=== PATIENT | female | born 1950 | race Caucasian/White ===

== ENCOUNTER → 2020-04-24 14:05 | Outpatient (BNVA) | payer MEDICARE, OTHER, SELFPAY | PROVIDERS: Family Provider Family Medicine; PCP Family Medicine; Visit Provider Nurse Practitioner | DX: R31.9 Hematuria, unspecified (principal); R35.0 Frequency of micturition; N39.0 Urinary tract infection, site not specified | CPT/HCPCS: 81000 ==

== ENCOUNTER 2020-12-10 08:26 | Outpatient (CLI) | payer MEDICARE, OTHER, SELFPAY ==
--- NOTE | 2020-12-10 08:34 | US_ITS ---
WS: [id number] Complete ABDOMINAL ULTRASOUND HISTORY: RUQ ABDOMINAL PAIN/POSTPRANDIAL BLOATING/LOOSE STOOLS COMPARISON: None available. Liver: 15.0 cm in length. Liver is normal size and echogenicity with no mass or intrahepatic dilatati on. Gallbladder: Normally distended gallbladder with a few small stones. No pericholecystic fluid. Gallbladder wall thickness: 0.2 cm. Pancreas: Normal size and echogenicity. CBD: 0.5 cm. Right kidney: 11.0 cm x 5.0 cm x 4.7 cm. No mass, cortical thickening or hydronephrosis. Left kidney: 10.9 cm x 3.6 cm x 4.2 cm. No mass, cortical thickening or hydronephrosis. Spleen: Normal size and echogenicity. Abdominal aorta and IVC are within normal limits. No ascites. US/US abdomen complete* [id number] IMPRESSION: 1. Cholelithiasis without evidence for acute cholecystitis. 2. Otherwise negative abdomen ultrasound.
== END 2020-12-10 08:27 | disposition home or self-care (01) ==
LOC: US 08:26
PROVIDERS: PCP Family Medicine; Visit Provider Family Medicine
DX: R10.11 Right upper quadrant pain (principal); R14.0 Abdominal distension (gaseous); R19.5 Other fecal abnormalities; K80.20 Calculus of gallbladder without cholecystitis without obstruction
CPT/HCPCS: 76700

== ENCOUNTER 2021-07-30 18:20 | Emergency (ER) | payer MEDICARE, OTHER, SELFPAY ==
[2021-07-30 18:30] VITALS: BP 194/98; PULSE 82; RESP 18; TEMP 36.8; O2SAT 100; BMI 33.3
--- NOTE | 2021-07-30 18:58 | ECG_ITS ---
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 Measurements Intervals [place] Rate: 83 P: 34 IN: 183 QRS: -13 QRSD: 97 T: 40 QT: 353 QTc: 416 Interpretive Statements SINUS RHYTHM MINIMAL VOLTAGE CRITERIA FOR LVH, CONSIDER NORMAL VARIANT [MEETS CRITERIA IN ONE OF: R(aVL), S(V1), R(V5), R(V5/V6)+S(V1)] No previous ECG available for comparison Electronically Signed On 07-30-2021 22:37:19 CDT by Alex Madison M.D. [id number] f
--- NOTE | 2021-07-30 18:58 | XRR_ITS ---
PROCEDURE INFORMATION: Exam: XR Chest Exam date and time: 07/30/2021 6:58 PM Age: 70 years old Clinical indication: Prior surgery; Surgery type: Gb; Patient HX: Increasing epigastric pain today w/ SOB TECHNIQUE: Imaging protocol: XR of the chest. Views: 1 view. COMPARISON: CT abdomen pelvis w con* [id number] 07/30/2018 6:02 AM FINDINGS: Lungs: Unremarkable. No consolidation. Pleural spaces: Unremarkable. No pleural effusion. No pneumothorax. Heart/Mediastinum: Unremarkable. No cardiomegaly. Bones/joints: Unremarkable. XR/XR chest 1V portable [id number] IMPRESSION: No acute findings. Radiation Dose CTDIVOL = (mGy): DLP = (mGy-cm)
--- NOTE | 2021-07-30 19:07 | W.ED.ABDPA2 ---
HPI - Abdominal Pain General: Chief Complaint: Abdominal Pain Stated Complaint: abd pain Time Seen by Provider: 07/30/21 18:42 History of Present Illness: HPI narrative: 70-year-old female with a history of a cholecystectomy 1 year ago. Since that time she has had intermittent episodes of epigastric pain that become worse in the last 2 weeks. Today was much worse. Pain is located in in her epigastrium and radiates to her back and along her left and right flank. She is nauseated. No vomiting. No fever. No diarrhea she says that it is hard to take a deep breath due to the pain. MD elicited complaint: abdominal pain Pertinent past history: other Onset (ago): hour(s) Pain Consistency: constant Location: Epigastric Severity: moderate Quality: aching and fullness Radiation: L flank and R flank Migration to: no migration Exacerbating factors: movement Relieving factors: nothing Associated Symptoms: Reports anorexia, bloating and nausea; Denies belching, coffee ground emesis, constipation, diarrhea, dysuria, fever(s) and vomiting Review of Systems Const: Denies: fever(s) Card: Denies: chest pain or palpitations Resp: Reports: dyspnea ( hard to take a deep breath ); Denies: productive cough or non-productive cough GI: Reports: nausea and bloating; Denies: vomiting, coffee ground emesis, diarrhea, constipation or belching : Denies: dysuria Neuro: Denies: headache(s) or weakness in extremities PFS ED PFSH: Social History Smoking and tobacco status: never smoked Physical Exam Const: GENERAL APPEARANCE: cooperative and ill appearing; not comfortable NUTRITIONAL APPEARANCE: overweight ORIENTATION/CONSCIOUSNESS: Yes awake, Yes oriented to person and Yes oriented to place HENMT: COMMON NORMALS: normocephalic HEAD & SCALP: normocephalic Eye: COMMON NORMALS: Equal, round and reactive pupils present and EOMs intact bilaterally PUPIL: Yes Equal, round and reactive pupils present Chest: COMMONS NORMALS: normal inspection of the chest and normal palpation of entire chest wall Cardio: COMMON NORMALS: regular rate and regular rhythm RATE: regular rate RHYTHM: regular rhythm GI: COMMON NORMALS: Normal to inspection, nondistended, normoactive bowel sounds present, Soft to palpation and non-tender (Tenderness is not really reproducible.) PALPATION: Yes Soft to palpation Neuro: SENSORIUM/ORIENTATION: Yes oriented to person and Yes oriented to place Course Vital Signs: Vital signs: Vital Signs Temperature 98.3 F 07/30/21 18:30 Pulse Rate 82 07/30/21 18:30 Respiratory Rate 22 H 07/30/21 19:56 Blood Pressure 194/98 07/30/21 18:30 Pulse Oximetry 99 07/30/21 19:56 MDM - Abdominal Pain MDM Narrative: Medical decision making narrative: Epigastric pain, not relieved by GI cocktail in a 70-year-old female status post cholecystectomy in 1 year. Her white blood cell count is 15.4 hemoglobin 15.5. Her creatinine is 1.1 her bilirubin is 3. Mild elevation in liver enzymes. Significant alkaline phosphatase elevation in 425. CT scan of the belly revealed dilated common bile duct. MRCP reveals a 6 mm distal common bile duct obstruction. We do not have gastroenterology and cannot perform ERCP at this institution. We have called multiple other hospitals including hospitals in [facility], [facility], and [place]. The patient has been accepted at [facility] in [place] to the medical surgical floor. She will go by ambulance. Lab Data: Labs: Lab Results 07/30/21 07/30/21 07/30/21 19:15 19:30 19:30 WBC 15.4 10^3/uL H 10 ^3/uL (4.0-10.0) RBC 4.96 10^6/uL 10^6 /uL (4.1-5.3) Hgb 15.5 g/dL H g/dL (11.5-15.3) Hct 48.1 % H % (37.0-47.0) MCV 97.0 fl fl (81-99) MCH 31.3 pg pg (28.0-34.0) MCHC 32.2 g/dL g/dL (30.0-36.0) RDW 13.7 % % (12.1-15.1) Plt Count 358 10^3/cmm 10^3 /cmm (130-400) MPV 11.2 fL H fL (7.4-10.4) Neut % (Auto) 77.7 % % Lymph % (Auto) 10.9 % % [place] % (Auto) 7.5 % % Eos % (Auto) 3.0 % % Baso % (Auto) 0.5 % % Neut # (Auto) 11.97 10^3/uL H 1 0^3/uL (1.8-7.7) Lymph # (Auto) 1.7 10^3/uL 10^3/ uL (0.8-4.8) [place] # (Auto) 1.2 10^3/uL H 10^ 3/uL (0.2-0.9) Eos # (Auto) 0.5 10^3/uL 10^3/ uL (0.0-0.8) Baso # (Auto) 0.1 10^3/uL 10^3/ uL (0.0-0.1) Nucleated RBC % (a uto) 0 % % Nucleated RBCs # 0.0 /100WBC /100W BC PT 13.20 SECONDS SEC ONDS (12.1-14.9) INR 0.97 (0.8-1.2) APTT 28.7 SECONDS SECO NDS (23.9-36.7) D-Dimer 0.57 ug/mIFEU ug/ mIFEU (0-0.59) Sodium Potassium Chloride Carbon Dioxide Anion Gap BUN Creatinine GFR Calculation Glucose Calculated Osmolal ity Lactate Calcium Total Bilirubin AST ALT Alkaline Phosphata se Creatine Kinase Troponin T Baselin e Troponin T 120 Min [place] Troponin T NT-Pro-B Natriuret Pep Total Protein Albumin Globulin Lipase Urine Color Yellow (Yellow) Urine Appearance Turbid (CLEAR) Urine pH 6 (5-7) Ur Specific Gravit y 1.010 (1.005-1.030) Urine Protein Neg (Negative) Urine Glucose (UA) Norm (Normal) Urine Ketones Negative (Negative) Urine Blood Neg (Negative) Urine Nitrate Negative (Negative) Urine Bilirubin Neg (Negative) Urine Urobilinogen 4 mg/dL H mg/dL (Negative) Ur Leukocyte Madelyn ase Negative (Negative) Urine RBC 0-4 /hpf H /hpf (0-2) Urine WBC 5-10 /hpf H /hpf (0-5) Ur Squamous Epith Cells 25-40 /hpf H /hpf (0-5) Amorphous Sediment Not Reportable Urine Bacteria 2+ /hpf H /hpf (NONE) 07/30/21 07/30/21 07/30/21 19:30 19:30 19:30 WBC RBC Hgb Hct MCV MCH MCHC RDW Plt Count MPV Neut % (Auto) Lymph % (Auto) [place] % (Auto) Eos % (Auto) Baso % (Auto) Neut # (Auto) Lymph # (Auto) [place] # (Auto) Eos # (Auto) Baso # (Auto) Nucleated RBC % (a uto) Nucleated RBCs # PT INR APTT D-Dimer Sodium 140 mmol/L mmol/L (136-145) Potassium 4.4 mmol/L mmol/L (3.5-5.1) Chloride 104 mmol/L mmol/L (98-107) Carbon Dioxide 21 mmol/L L mmol/ L (22-29) Anion Gap 19.4 H (5-19) BUN 12 mg/dL mg/dL (8-23) Creatinine 1.1 mg/dL H mg/dL (0.5-0.9) GFR Calculation Not Reportable Glucose 94 mg/dL mg/dL (65-115) Calculated Osmolal ity 290 mOsm/kg mOsm/ kg (285-295) Lactate 1.4 mmol/L mmol/L (0.5-2.2) Calcium 9.3 mg/dL mg/dL (8.5-10.5) Total Bilirubin 3.2 mg/dL H mg/dL (0.15-1.2) AST 181 U/L H U/L (0-32) ALT 193 U/L H U/L (0-33) Alkaline Phosphata se 425 IU/L H IU/L (35-105) Creatine Kinase 99 U/L U/L (26-192) Troponin T Baselin e 10 ng/L ng/L (0-10) Troponin T 120 Min [place] Troponin T NT-Pro-B Natriuret Pep 341 pg/mL H pg/mL (0-125) Total Protein 7.2 g/dL g/dL (6.6-8.7) Albumin 4.2 g/dL g/dL (3.5-5.2) Globulin 3.0 g/dL g/dL (1.3-4.6) Lipase 180 U/L H U/L (13-60) Urine Color Urine Appearance Urine pH Ur Specific Gravit y Urine Protein Urine Glucose (UA) Urine Ketones Urine Blood Urine Nitrate Urine Bilirubin Urine Urobilinogen Ur Leukocyte Madelyn ase Urine RBC Urine WBC Ur Squamous Epith Cells Amorphous Sediment Urine Bacteria 07/30/21 21:45 WBC RBC Hgb Hct MCV MCH MCHC RDW Plt Count MPV Neut % (Auto) Lymph % (Auto) [place] % (Auto) Eos % (Auto) Baso % (Auto) Neut # (Auto) Lymph # (Auto) [place] # (Auto) Eos # (Auto) Baso # (Auto) Nucleated RBC % (a uto) Nucleated RBCs # PT INR APTT D-Dimer Sodium Potassium Chloride Carbon Dioxide Anion Gap BUN Creatinine GFR Calculation Glucose Calculated Osmolal ity Lactate Calcium Total Bilirubin AST ALT Alkaline Phosphata se Creatine Kinase Troponin T Baselin e Troponin T 120 Min [place] 10.56 ng/L H ng/L (0-10) Delta Troponin T 0.56 ABS# ABS# (0-10) NT-Pro-B Natriuret Pep Total Protein Albumin Globulin Lipase Urine Color Urine Appearance Urine pH Ur Specific Gravit y Urine Protein Urine Glucose (UA) Urine Ketones Urine Blood Urine Nitrate Urine Bilirubin Urine Urobilinogen Ur Leukocyte Madelyn ase Urine RBC Urine WBC Ur Squamous Epith Cells Amorphous Sediment Urine Bacteria Discharge Plan Discharge Patient Disposition: Xfer Short-Term Hosp Clinical Impression: Choledocholithiasis Condition: Stable Referrals: Dylan Badillo MD [Primary Care Provider] - Coding Level of Care Code ED Professor Of Communication And Writing for Chg Fwd Exam Detailed
[2021-07-30] MEDS: ondansetron 2 mg/ML SDV 2 mL 4 MG IVP (19:22)
[2021-07-30] MEDS: morphine 4 mg/mL SDV 1 mL IVP ×2 (19:22→19:56)
[2021-07-30] MEDS: sodium chloride 0.9% 1,000 ML 999 ML IV (19:22)
[2021-07-30] MEDS: lidocaine 2% viscous 15 ML, aluminum-mag hydrox-simethicon 30 ML, sucralfate oral liq 1 GM PO (19:30)
[2021-07-30 19:36] LABS: Add Urine Culture? No; Add Urine Microscopic? YES; Bacteria Urine 2+ /hpf; Bilirubin Urine Neg (Negative); Blood Urine Neg (Negative); Glucose Urine UA Norm (Normal); Ketones Urine Negative (Negative); Leukocyte Esterase Urine Negative (Negative); Nitrate Urine Negative (Negative); Protein Urine Neg (Negative); RBC Urine 0-4 /hpf (0-2); Squamous Epithelial Cell Urine 25-40 /hpf (0-5); Urine Appearance Turbid (CLEAR); Urine Color Yellow (Yellow); Urobilinogen Urine 4 mg/dL (Negative); pH Urine 6 (5-7)
[2021-07-30 19:48] LABS: Basophils # 0.1 10^3/uL (0.0-0.1); Basophils % 0.5 %; Eosinophils # 0.5 10^3/uL (0.0-0.8); Hematocrit 48.1 % (37.0-47.0); Hemoglobin 15.5 g/dL (11.5-15.3); Lymphocytes # 1.7 10^3/uL (0.8-4.8); Lymphocytes % 10.9 %; Mean Corpuscular HGB Conc 32.2 g/dL (30.0-36.0); Mean Corpuscular Hemoglobin 31.3 pg (28.0-34.0); Mean Platelet Volume 11.2 fL (7.4-10.4); Monocytes # 1.2 10^3/uL (0.2-0.9); Monocytes % 7.5 %; Neutrophils # 11.97 10^3/uL (1.8-7.7); Neutrophils % 77.7 %; Nucleated Red Blood Cells % 0 %; Platelet Count 358 10^3/cmm (130-400); Red Blood Count 4.96 10^6/uL (4.1-5.3); Red Cell Distribution Width 13.7 % (12.1-15.1); White Blood Count 15.4 10^3/uL (4.0-10.0)
[2021-07-30 19:56] VITALS: RESP 22; O2SAT 99
--- NOTE | 2021-07-30 19:59 | CTR_ITS ---
PROCEDURE INFORMATION: Exam: CT Abdomen And Pelvis With Contrast Exam date and time: 07/30/2021 7:59 PM Age: 70 years old Clinical indication: Abdominal pain; Epigastric; Prior surgery; Surgery type: Oophorectomy, gb; Additional info: Epigstric pain TECHNIQUE: Imaging protocol: Computed tomography of the abdomen and pelvis with contrast. Radiation optimization: All CT scans at this facility use at least one of these dose optimization techniques: automated exposure control; mA and/or kV adjustment per patient size (includes targeted exams where dose is matched to clinical indication); or iterative reconstruction. Contrast material: VISI 320; Contrast volume: 95 ml; Contrast route: INTRAVENOUS (IV); COMPARISON: CT abdomen pelvis w con* [id number] 07/30/2018 6:02 AM RADIATION DOSE METRICS: Total DLP (mGy-cm): 1712.03 FINDINGS: Liver: Normal. No mass. Gallbladder and bile ducts: Cholecystectomy. The biliary system is mildly dilated which is new from comparison imaging. The common bile duct measures about 9 mm maximal transverse diameter. On the coronal images there is suggestion of an expanded appearance of the duct near the ampulla on coronal image 41. The biliary epithelium is mildly enhancing. Pancreas: Normal. No ductal dilation. Spleen: Normal. No splenomegaly. Adrenal glands: Normal. No mass. Kidneys and ureters: Normal. No hydronephrosis. Stomach and bowel: Unremarkable. No obstruction. No mucosal thickening. Appendix: No evidence of appendicitis. Intraperitoneal space: Unremarkable. No free air. No significant fluid collection. Vasculature: Large volume of circumferential atherosclerotic wall plaque throughout abdominal aorta. Negative for vascular occlusion. No aneurysm. Lymph nodes: Unremarkable. No enlarged lymph nodes. Urinary bladder: Unremarkable as visualized. Reproductive: Unremarkable as visualized. Bones/joints: Unremarkable. No acute fracture. Soft tissues: Unremarkable. CT/CT abdomen pelvis w con* [id number] IMPRESSION: 1. Small partially calcified fibroid in the uterine fundus. 2. Mildly dilated biliary system extending into the ampulla. Enhancement of the bile duct mendoza. The diagnostic considerations would include a distal obstructing lesion such as a stone, ampullary mass. Cannot exclude cholangitis. 3. Correlation with liver function tests necessary. MRCP evaluation may be of value. Radiation Dose CTDIVOL = (mGy): DLP = 1712.03 (mGy-cm)
[2021-07-30 20:02] LABS: INR 0.97 (0.8-1.2)
[2021-07-30 20:03] LABS: Partial Thromboplastin Time 28.7 SECONDS (23.9-36.7)
[2021-07-30 20:05] LABS: Lactate (Lactic Acid level) 1.4 mmol/L (0.5-2.2)
[2021-07-30 20:06] LABS: D Dimer 0.57 ug/mIFEU (0-0.59)
[2021-07-30 20:08] LABS: Troponin(5th) Baseline 10 ng/L (0-10)
[2021-07-30 20:15] LABS: Alanine Aminotransferase 193 U/L (0-33); Albumin Level 4.2 g/dL (3.5-5.2); Alkaline Phosphatase 425 IU/L (35-105); Anion Gap 19.4 (5-19); Aspartate Amino Transferase 181 U/L (0-32); Blood Urea Nitrogen 12 mg/dL (8-23); Calcium 9.3 mg/dL (8.5-10.5); Carbon Dioxide 21 mmol/L (22-29); Chloride 104 mmol/L (98-107); Creatine Phosphokinase 99 U/L (26-192); Glucose 94 mg/dL (65-115); Lipase 180 U/L (13-60); NT Pro B Type Natriuretic Pept 341 pg/mL (0-125); Osmolality Calculated 290 mOsm/kg (285-295); Potassium 4.4 mmol/L (3.5-5.1); Sodium 140 mmol/L (136-145); Total Bilirubin 3.2 mg/dL (0.15-1.2); Total Protein 7.2 g/dL (6.6-8.7)
[2021-07-30] MEDS: iodixanol 320 mg/mL 100mL Btl IV (20:27)
[2021-07-30 20:35] VITALS: BP 199/92; PULSE 98; RESP 22; O2SAT 99
--- NOTE | 2021-07-30 20:57 | MRR_ITS ---
PROCEDURE INFORMATION: Exam: MR Abdomen Without Contrast Exam date and time: 07/30/2021 8:57 PM Age: 70 years old Clinical indication: Abdominal pain; Additional info: Ruq pain, elevated bili TECHNIQUE: Imaging protocol: MR of the abdomen without contrast. COMPARISON: CT abdomen pelvis w con* [id number] 07/30/2021 8:25 PM FINDINGS: Liver: No mass. Gallbladder and bile ducts: Mild dilation of intrahepatic and extrahepatic biliary system. Common bile duct measuring up to 10 mm in the midportion. Cholecystectomy. Focal signal void in the distal common bile duct is noted measuring 6 mm diameter. Pancreas: Unremarkable. No ductal dilation. Spleen: Unremarkable. No splenomegaly. Adrenal glands: Unremarkable. No mass. Kidneys and ureters: Unremarkable. No solid mass. No hydronephrosis. Stomach and bowel: Visualized stomach and intestines are unremarkable. Intraperitoneal space: No free fluid. Arteries: No abdominal aortic aneurysm. Bones/joints: Unremarkable. Soft tissues: Unremarkable. MR/MR MRCP [id number] IMPRESSION: Distal common bile duct stone suspected causing upstream biliary system dilation changes. Radiation Dose CTDIVOL = (mGy): DLP = (mGy-cm)
--- NOTE | 2021-07-30 20:58 | ECG_ITS ---
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 Measurements Intervals [place] Rate: 94 P: 45 [place]: 177 QRS: -28 QRSD: 94 T: 37 QT: 345 QTc: 431 Interpretive Statements SINUS RHYTHM BORDERLINE LEFT AXIS DEVIATION [QRS AXIS < -20] Compared to ECG 07/30/2021 19:16:17 No significant changes Electronically Signed On 07-30-2021 22:47:57 CDT by Alex Madison M.D. [id number] f
[2021-07-30] MEDS: amlodipine 10 mg Tablet PO (21:03)
[2021-07-30] MEDS: labetalol 5 mg/mL SDV 20mL 20 MG IVP (21:03)
[2021-07-30 21:35] VITALS: BP 176/82; PULSE 78; RESP 20; O2SAT 99
[2021-07-30 22:32] LABS: Troponin 5 2HR 10.56 ng/L (0-10); Troponin 5 2HR Delta 0.56 ABS# (0-10)
[2021-07-30 23:35] VITALS: BP 171/77; PULSE 82; RESP 20; O2SAT 99
[2021-07-31] MEDS: lisinopril 10 mg Tablet 40 MG PO (00:26)
[2021-07-31] MEDS: morphine 4 mg/mL SDV 1 mL IVP ×2 (00:27→02:17)
--- NOTE | 2021-07-31 00:58 | ECG_ITS ---
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 Measurements Intervals [place] Rate: 87 P: 34 [place]: 172 QRS: -23 QRSD: 96 T: 36 QT: 368 QTc: 444 Interpretive Statements SINUS RHYTHM BORDERLINE LEFT AXIS DEVIATION [QRS AXIS < -20] Compared to ECG 07/30/2021 21:06:33 No significant changes Electronically Signed On 08-01-2021 18:38:24 CDT by Franchesca Villarreal M.D. [id number]
[2021-07-31 01:00] VITALS: BP 162/78; PULSE 85; RESP 18; O2SAT 99
[2021-07-31] MEDS: sodium chloride 0.9% 1,000 ML 100 ML IV (01:30)
[2021-07-31 02:12] LABS: Troponin 5 6HR 14.33 ng/L (0-10); Troponin 5 6HR Delta 4.33 ng/L (0-12)
[2021-07-31] MEDS: ondansetron 2 mg/ML SDV 2 mL 4 MG IVP (02:17)
[2021-07-31 02:27] VITALS: BP 169/79; PULSE 92; RESP 20; O2SAT 98
--- NOTE | 2021-07-31 03:34 | PC.NURSE ---
At the time of transfer, pt reports pain has markedly improved and states upper abdominal area does not feel as tight and constricting as it was at the time of admission to ER. No N/V while in ER.
== END 2021-07-31 02:22 | disposition short-term general hospital (02) ==
PROVIDERS: Emergency Provider Emergency Medicine; PCP Family Medicine
DX: K80.50 Calculus of bile duct without cholangitis or cholecystitis without obstruction (principal)
CPT/HCPCS: 71045; 74177; 74181; 80053; 81001; 82550; 83605; 83690; 83880; 84484; 85025; 85378; 85610; 85730; 93005; 96361; 96374; 96375; 96376; 99285; J2270; J2405; J3490; J7030; Q9967

== ENCOUNTER → 2022-02-07 11:43 | Outpatient (BNVA) | payer MEDICARE, OTHER, SELFPAY | PROVIDERS: PCP Family Medicine; Visit Provider Family Medicine | DX: Z51.81 Encounter for therapeutic drug level monitoring (principal); Z13.220 Encounter for screening for lipoid disorders; Z13.1 Encounter for screening for diabetes mellitus; E03.9 Hypothyroidism, unspecified | CPT/HCPCS: 80053; 80061; 83036; 84439; 84443; 85025 ==

== ENCOUNTER 2022-02-21 10:19 | Outpatient (CLI) | payer MEDICARE, OTHER, SELFPAY ==
--- NOTE | 2022-02-21 10:33 | MM_ITS ---
WS: [id number] SCREENING DIGITAL BREAST TOMOSYNTHESIS MAMMOGRAM WITH CAD HISTORY: SCREENING COMPARISON: 05/29/2020 and 01/16/2019 Bilateral CC and MLO with tomosynthesis views submitted. Synthetic mammography reviewed. Computer aid ed detection analyzed. Breast composition: There are scattered areas of fibroglandular density. No suspicious masses, microc alcifications or architectural distortion. Bilateral breast arterial calcifications. MM/[place] [id number] IMPRESSION: BI-RADS: 2-Benign FOLLOW UP: 1 Year Follow-up
== END 2022-02-21 10:20 | disposition home or self-care (01) ==
LOC: RAD 10:23
PROVIDERS: PCP Family Medicine; Visit Provider Family Medicine
DX: Z12.31 Encounter for screening mammogram for malignant neoplasm of breast (principal)
CPT/HCPCS: 77063; 77067

== ENCOUNTER 2022-02-28 06:57 | Outpatient (CLI) | payer MEDICARE, OTHER, SELFPAY ==
--- NOTE | 2022-02-28 07:02 | US_ITS ---
WS: [id number] THYROID ULTRASOUND (TI-RADS CRITERIA) History: Palpable RIGHT thyroid nodule.. Technique: Ultrasound examination of the thyroid and adjacent soft tissues is performed. FINDINGS: Right lobe: 5.2 cm x 2.1 cm x 2.8 cm. Volume: 16.0 cm3. Enlarged heterogeneous thyroid gland with a dominant nodule. Lymph nodes: None. NODULE: Size: 2.3 x 1.8 x 2.2 cm. Location: Mid RIGHT. Composition: Solid/almost completely solid (2) Echogenicity: Hyperechoic (1) Shape: Not taller than wide (0) Margins: Smooth (0) Echogenic foci: None (0) ACR TI-RADS total points: 3 ACR TI-RADS risk category: TR3 Left lobe: 4.3 cm x 1.1 cm x 1.9 cm. Volume: 4.6 cm3. Small very heterogeneous irregular gland. No dominant nodules. Lymph nodes: Small benign-appearing Isthmus: 0.5 cm. US/US thyroid [id number] Impression: TR3 Recommendation:Mildly suspicious features. Predominantly due to its size. As th is nodule is less than 2.5 cm recommendation is for follow-up in one, 3 and 5 y ears. Fine-needle aspiration can be performed if clinically desired. If thyroid nodule(s) change on follow-up examinations the recommendations will be altered as necessary.
== END 2022-02-28 06:58 | disposition home or self-care (01) ==
LOC: RAD 06:58
PROVIDERS: PCP Family Medicine; Visit Provider Family Medicine
DX: E04.1 Nontoxic single thyroid nodule (principal)
CPT/HCPCS: 76536

== ENCOUNTER 2022-03-23 07:49 | Outpatient (CLI) | payer MEDICARE, OTHER, SELFPAY ==
--- NOTE | 2022-03-23 07:56 | XR_ITS ---
WS: [id number] LEFT KNEE: 3 VIEW(S) TECHNIQUE: AP, oblique(s) and lateral. HISTORY: LEFT KNEE PAIN COMPARISON: None available. No fracture or dislocation. Moderate narrowing of the medial compartment. There are very small osteophytes along the joint line o f the medial compartment. Small amount of sclerosis involving the medial tibial plateau and femoral c ondyle. No definite osteochondral lesions. No fracture. No joint effusion. No soft tissue abnormality. XR/XR knee LT 3V* [id number] IMPRESSION: Moderate medial compartment osteoarthritis.
--- NOTE | 2022-03-23 07:56 | XR_ITS ---
WS: [id number] RIGHT KNEE: 3 VIEW(S) TECHNIQUE: AP, oblique(s) and lateral. HISTORY: R KNEE PAIN COMPARISON: None available. No fracture or dislocation. Moderate to severe narrowing of the medial compartment. Sclerosis with near bone upon bone. Small mar ginal osteophytes in the medial and lateral compartment. Mild narrowing of patellofemoral joint space . No joint effusion. No soft tissue abnormality. XR/XR knee RT 3V* [id number] IMPRESSION: Moderate to severe medial compartment osteoarthritis.
== END 2022-03-23 07:50 | disposition home or self-care (01) ==
LOC: RAD 07:51
PROVIDERS: PCP Family Medicine; Visit Provider Family Medicine
DX: M17.0 Bilateral primary osteoarthritis of knee (principal)
CPT/HCPCS: 73562

== ENCOUNTER 2022-03-29 10:52 | Emergency (ER) | payer MEDICARE, OTHER, SELFPAY ==
[2022-03-29 11:12] VITALS: BP 145/54; PULSE 89; RESP 16; TEMP 37.1; O2SAT 99; BMI 33.3
--- NOTE | 2022-03-29 14:17 | XR_ITS ---
WS: [id number] Exam: XR knee LT 3V* [id number] Date/Time of Exam: 03/29/2022 2:18 PM Reason For Exam: Fell down and left knee hit wood floor Comparison 03/23/2022. No acute fracture or dislocation. Moderate degenerative narrowing of the medial joint compartment. No joint effusion seen. Osteophyte formation along the superior anterior patella. XR/XR knee LT 3V* [id number] IMPRESSION: 1. No fracture or joint effusion. 2. Moderate degenerative change of the medial joint compartment with narrowing.
--- NOTE | 2022-03-29 14:23 | W.ED.FALL ---
HPI - Fall General: Chief Complaint: Fall Stated Complaint: FALL Time Seen by Provider: 03/29/22 13:58 History of Present Illness: Patient is a 71-year-old female comes to the ED with left knee pain. Patient says she fell approximately a week ago. She says she was bending forward to clean some water off the floor and Lost her balance and fell forward. Her knees hit the wood floor. She denies any head trauma or loss of consciousness. Since fall her left knee has been hurting her. She says she is unable to bear weight at this time. She rates her pain currently a 8 out of 10. She has not had anything for pain today before coming to the ED. patient's PCP has currently referred her to Ortho for bilateral osteoarthritic knee pain. Associated symptoms-after fall: Denies abdominal pain, chest pain, headache(s), hematuria or neck pain Review of Systems Const: Denies: fever(s), chills or fatigue Eyes: Denies: change in vision or eye discomfort ENMT: Denies: throat pain, odynophagia, nasal discharge or nasal congestion Card: Denies: chest pain, palpitations, edema, swelling of feet/ankles, dyspnea on exertion or orthopnea Resp: Denies: dyspnea, productive cough or non-productive cough GI: Denies: abdominal pain, nausea, vomiting, diarrhea, constipation or hematochezia : Denies: flank pain, dysuria or hematuria Musc: Reports: extremity pain (Left knee) and limited range of motion (Left knee); Denies: neck pain, back pain or extremity swelling Skin/Breast: Denies: rash or new lesions Neuro: Denies: headache(s), numbness in extremities or weakness in extremities PFS ED PFSH: Medical History No pertinent family history Surgical History No pertinent past surgical history Social History Smoking and tobacco status: never smoked Physical Exam Const: COMMON NORMALS: patient oriented x3 and alert GENERAL APPEARANCE: cooperative and comfortable HENMT: COMMON NORMALS: normocephalic HEAD & SCALP: normocephalic MOUTH: Normal oral and palatal mucosa present THROAT: posterior oropharynx normal and uvula midline Neck/C-Spine: COMMON NORMALS: supple GENERAL: Yes normal visual inspection Resp: COMMON NORMALS: normal respiratory effort, No retractions, No use of accessory muscles and clear to auscultation bilaterally AUSCULTATION: clear to auscultation bilaterally Cardio: COMMON NORMALS: regular rate, regular rhythm, S1 normal heart sound present, S2 normal heart sound present, No gallops present (Cardio), No clicks present (Cardio), No murmurs present (Cardio) and Peripheral pulses 2+ throughout RATE: regular rate RHYTHM: regular rhythm HEART SOUNDS: S1 normal heart sound present and S2 normal heart sound present PERIPHERAL PULSES: Peripheral pulses 2+ throughout GI: COMMON NORMALS: Normal to inspection, nondistended, normoactive bowel sounds present, Soft to palpation, non-tender and no masses PALPATION: Yes Soft to palpation : COMMON NORMALS: Yes no CVA tenderness BLADDER/KIDNEY EXAM: Yes no CVA tenderness Back/Pelvis: COMMON NORMALS: no CVA tenderness Extremity: NARRATIVE EXTREMITY EXAM: Left knee?no erythema or warmth noted. Mild generalized swelling in knee. Tenderness over patella. Neurovascular intact distally. Neuro: COMMON NORMALS: patient oriented x3 and moves all extremities SENSORIUM/ORIENTATION: Yes alert Skin: GENERAL SKIN EXAM: dry skin Course Vital Signs: Vital signs: Vital Signs Temperature 98.8 F 03/29/22 11:12 Pulse Rate 67 03/29/22 16:39 Respiratory Rate 16 03/29/22 16:39 Blood Pressure 145/54 03/29/22 11:12 Pulse Oximetry 99 03/29/22 16:39 MDM - Fall Medical Decision Making Patient is a 71-year-old female comes to the ED with left knee pain. Patient says she fell approximately a week ago. She says she was bending forward to clean some water off the floor and Lost her balance and fell forward. Her knees hit the wood floor. She denies any head trauma or loss of consciousness. Vitals are stable. Exam of patient shows some left knee tenderness over patella. Neurovascular intact. X-ray of left knee showed no acute fractures or joint effusions. It did note some moderate degenerative changes of the medial joint compartment. Patient was diagnosed with injury of left knee was discharged home with crutches. Patient's PCP has currently referred her to Ortho for bilateral osteoarthritic knee pain. Return to ED precautions given. Patient understood and agreed with plan. Lab Data Radiology Impressions Knee X-Ray 03/29/22 14:17 IMPRESSION: 1. No fracture or joint effusion. 2. Moderate degenerative change of the medial joint compartment with narrowing. Discharge Plan Discharge Patient Disposition: Home Clinical Impression: Injury of knee, left Qualifiers: Encounter type: initial encounter Qualified Code(s): S89.92XA - Unspecified injury of left lower leg, initial encounter Condition: Stable Prescriptions: No Action valacyclovir 1 gram tablet 1,000 mg PO TID 7 Days Qty: 21 0RF simvastatin 40 mg tablet 40 mg PO ONCE 0RF metoprolol succinate 100 mg tablet extended release 24 hr 100 mg PO DAILY 0RF lisinopril 20 mg tablet 20 mg PO ONCE 0RF levothyroxine 75 mcg capsule 75 mcg PO ONCE 0RF medroxyprogesterone 10 mg tablet 10 mg PO ONCE 0RF estradiol 1 mg tablet 1 mg PO ONCE 0RF sulfamethoxazole-trimethoprim 800-160 mg tablet 1 tab PO BID 7 Days Qty: 14 0RF Discharge Orders: Discharge ED (Routine); Ordered 03/29/22 Ordered By: Josafat Landaverde Referrals: Josafat Brock MD [Primary Care Provider] - Discharge Diet: Regular Discharge Activity: Increase activity as tolerated Patient Instructions: Knee Pain (ED) Activity Restrictions/Additional Instructions: Follow-up with primary care provider in the next 5 to 7 days for reevaluation. Take [id number] ibuprofen or Tylenol for pain. Rest, ice and elevate left knee elbow symptoms. Use crutches to limit weightbearing on left knee for the next couple days to allow for healing. Return to the ER or your medical provider if condition worsens. Please read and understand discharge instructions. Thank you for choosing [facility] for your healthcare needs today. Please realize this is an emergency room and that we are providing you with a medical screening exam and this may not be complete and all inclusive of all the testing and or work up that you may need to determine your ailment or severity of your illness. It is very important that you follow up as instructed or that you return to the Emergency Department should you have concerns or if your condition changes or worsens in any way. Coding Level of Care Code ED Event Lighting Specialist for Jenniffer Brown Exam Comprehensive
[2022-03-29] MEDS: HYDROcodone-acetaminophen 5-325 mg Tablet 1 TAB PO (14:37)
--- NOTE | 2022-03-29 16:38 | PC.NURSE ---
PERFORMED BY [employer].
[2022-03-29 16:39] VITALS: PULSE 67; RESP 16; O2SAT 99
== END 2022-03-29 16:40 | disposition home or self-care (01) ==
PROVIDERS: Emergency Provider Physician Assistant; PCP Family Medicine
DX: S89.92XA Unspecified injury of left lower leg, initial encounter (principal); W18.30XA Fall on same level, unspecified, initial encounter
CPT/HCPCS: 73562; E0114

== ENCOUNTER → 2022-03-31 09:23 | Outpatient (BNVA) | payer MEDICARE, OTHER, SELFPAY | PROVIDERS: PCP Family Medicine; Referring Provider Family Medicine; Visit Provider Physician Assistant | DX: M17.0 Bilateral primary osteoarthritis of knee (principal) | CPT/HCPCS: 99203 ==

== ENCOUNTER 2022-04-08 13:24 | Outpatient (RCR) | payer MEDICARE, OTHER, SELFPAY | END 2022-05-08 23:59 | disposition home or self-care (01) | LOC: SPT 13:24 | PROVIDERS: PCP Family Medicine; Referring Provider Physician Assistant; Visit Provider Physician Assistant | DX: M17.0 Bilateral primary osteoarthritis of knee (principal) | CPT/HCPCS: 97110; 97162 ==

== ENCOUNTER → 2022-05-04 14:52 | Outpatient (BNVA) | payer MEDICARE, OTHER, SELFPAY | PROVIDERS: PCP Family Medicine; Visit Provider Orthopaedic Surgery | DX: M17.0 Bilateral primary osteoarthritis of knee (principal) | CPT/HCPCS: 20610; 99203; 99204; J7325 ==

== ENCOUNTER → 2022-05-25 08:26 | Outpatient (BNVA) | payer MEDICARE, OTHER, SELFPAY | PROVIDERS: PCP Family Medicine; Visit Provider Orthopaedic Surgery | DX: M17.0 Bilateral primary osteoarthritis of knee (principal) | CPT/HCPCS: 99212 ==

== ENCOUNTER → 2022-06-22 08:13 | Outpatient (BNVA) | payer MEDICARE, OTHER, SELFPAY | PROVIDERS: PCP Family Medicine; Visit Provider Family Medicine | DX: Z00.00 Encounter for general adult medical examination without abnormal findings (principal); G47.10 Hypersomnia, unspecified; I10 Essential (primary) hypertension; Z51.81 Encounter for therapeutic drug level monitoring; R25.2 Cramp and spasm | CPT/HCPCS: 80053; 80061; 83735; 85025 ==

== ENCOUNTER → 2022-07-06 08:37 | Outpatient (BNVA) | payer MEDICARE, OTHER, SELFPAY | PROVIDERS: PCP Family Medicine; Visit Provider Family Medicine | DX: R73.01 Impaired fasting glucose (principal); G47.10 Hypersomnia, unspecified; I10 Essential (primary) hypertension; Z00.00 Encounter for general adult medical examination without abnormal findings | CPT/HCPCS: 83036 ==

== ENCOUNTER → 2022-10-25 13:28 | Outpatient (BNVA) | payer MEDICARE, OTHER, SELFPAY | PROVIDERS: PCP Family Medicine; Visit Provider Orthopaedic Surgery | DX: M17.11 Unilateral primary osteoarthritis, right knee (principal); M65.311 Trigger thumb, right thumb | CPT/HCPCS: 20610; 99213; J0702; J3490 ==

== ENCOUNTER 2022-11-03 08:56 | Day surgery (SDC) | payer MEDICARE, OTHER, SELFPAY ==
[2022-11-01 11:39] VITALS: BMI 33.1
[2022-11-03] VITALS (8 sets, daily range): BP systolic 129–177; BP diastolic 55–87; PULSE 61–89; RESP 10–18; TEMP 36.3–36.9; O2SAT 95–97
--- NOTE | 2022-11-03 08:26 | W.PM.OPSUD ---
Surgery/Procedure H&P Update DATE OF PROCEDURE: November 03, 2022 DATE H&P PERFORMED: 10/25/22 H&P UPDATE INFORMATION: I have reviewed H&P completed within last 30 days PREOP DIAGNOSIS: Right trigger thumb PLANNED PROCEDURE: Operation Date: 11/03/22 10:30 Proposed Procedures p right trigger thumb release/ 66908,M65.319(Right) - Iván Avila MD
[2022-11-03] MEDS: sodium chloride 0.9% 1,000 ML 30 ML IV (09:40)
--- NOTE | 2022-11-03 09:53 | P.ANESASSM_ITS ---
Pre-Anesthetic Assessment Height/Weight: Height 1.6 m Weight 84.822 kg Temp Pulse Resp BP Pulse Ox O2 Del Method 97.4 F L 71 18 163/87 97 11/03/22 09:14 11/03/22 09:14 11/03/22 09:14 11/03/22 09:14 11/03/22 09:14 11/03/22 09:14 Preop Diagnosis: Right trigger thumb Operation Date: 11/03/22 10:30 Proposed Procedures p right trigger thumb release/ 31721,M65.319(Right) - Iván Avila MD Familial anesthetic complications: awareness - patient experienced awareness during induction for her gallbladder surgery, experienced not being able to move or speak and felt the breathing tube going in. Patient experienced signifcant anxiety for the following 3 months. Would like for us to explain what we are doing every step of the way and warn her before she receives any propofol Was Beta Ken taken within 24 hours: Yes Was Clonidine taken within 24 hours: N/A Last intake: Intake Last Liquid Date 11/03/22 Last Liquid Time 08:00 Last Solid Date 11/02/22 Last Solid Time 18:00 Social No alcohol and No tobacco Exam alert, oriented x 3, clear to auscultation bilaterally and regular rate & rhythm Airway Mallampati: Class III Dentition: full CV/HEM Hypertension Metabolic Hyperlipidemia and Thyroid Disease Anesthetic Plan ASA status: 2 Anesthesia: MAC Risk of > 500 ml blood loss (7ml/kg in children): No Medications/Allergies Home Medications Medication Instructions Recorded Confirmed Last Taken Type levothyroxine 75 mcg capsule 75 mcg PO ONCE 10/12/19 11/01/22 11/03/22 History metoprolol succinate 100 mg 100 mg PO DAILY 10/12/19 11/01/22 11/03/22 History tablet,extended release 24 hr hydrochlorothiazide 25 mg tablet 25 mg PO DAILY #30 tabs 06/21/22 11/01/22 0 11/02/22 Rx lisinopril 40 mg tablet 40 mg PO DAILY 06/21/22 11/01/22 11/02/22 History meloxicam 15 mg tablet 15 mg PO DAILY #30 tabs 06/21/22 11/01/22 11/02/22 Rx simvastatin 20 mg tablet 20 mg PO DAILY 06/21/22 11/01/22 11/02/22 History amlodipine 10 mg tablet 10 mg PO DAILY #90 tabs 07/14/22 11/01/22 11/03/22 Rx estradiol 0.5 mg tablet See Rx Instructions .Route 10/14/22 11/01/22 11/01/22 Rx .COMPLEX #30 tabs Allergies Allergy/AdvReac Type Severity Reaction Status Date / Time prednisone Allergy Mild rash Verified 11/03/22 09:13 [facility] Anesthesia Medical History No pertinent family history Surgical History No pertinent past surgical history Social History Smoking and tobacco status: never smoked Data Anesthesia Cardiac Studies: No Data to Display
[2022-11-03] MEDS: ceFAZolin 2,000 MG in sodium chloride 0.9% (plus) 50 ML 100 MG IV (10:21)
--- NOTE | 2022-11-03 11:01 | PM.OP ---
Operative Report Date of procedure: November 03, 2022 Pre-op diagnosis: Preop Diagnosis Right trigger thumb Post-op diagnosis: same Procedure done: Right trigger thumb release Pathology: none sent Surgeon: Iván Avila Anesthesia: MAC and Local Estimated blood loss (mL): 1 Tourniquet time (min): 3 Condition: stable Disposition: PACU Brief History: The patient is a 71-year-old with pain and popping in her right thumb. She has failed a previous injection. She is here for trigger thumb release Procedure: The patient's hand was prepped in the usual fashion. A timeout was performed. The skin was infiltrated with 3 cc of 0.5% Marcaine. A tourniquet was inflated to 200 mmHg I transverse incision was made over the level of a 1 simon in the palm over a distance of approximately a centimeter and a half. Under loupe magnification blunt dissection was accomplished down to the A1 simon. With adequate visualization a scalpel was used to divide the central 8 mm of that structure. Blunt scissors were then used to extend the release approximately 5 mm proximally and 5 mm distally. Tendons were pulled the road and inspected to assure there health. Tourniquet was deflated. Normal bleeding was noted. The skin edges were closed with 3-0 Prolene compressive dressings were applied.
[2022-11-03] MEDS: HYDROcodone-acetaminophen 5-325 mg Tablet 1 TAB PO (11:44)
--- NOTE | 2022-11-03 14:22 | ANE.PACU2 ---
Inpatient post-anesthesia follow up: Airway intact: Yes Vital signs: Temperature 97.8 F Pulse Rate 61 Respiratory Rate 16 Blood Pressure 146/79 Pulse Oximetry 97 Oxygen Delivery Me thod Room Air Oxygen Flow Rate Fraction of Inspir ed Oxygen Hydration adequate: Yes Nausea and vomiting: No Pain level: 1 Mental status: Baseline
== END 2022-11-03 12:28 | disposition home or self-care (01) ==
PROVIDERS: PCP Family Medicine; Visit Provider Orthopaedic Surgery
PROC: (CPT 26055; principal; 2022-11-03 10:20)
DX: M65.311 Trigger thumb, right thumb (principal); I10 Essential (primary) hypertension; E78.5 Hyperlipidemia, unspecified
CPT/HCPCS: 26055; J0690; J2370; J2704; J3010; J3490; J7030

== ENCOUNTER → 2022-11-15 10:57 | Outpatient (BNVA) | payer MEDICARE, OTHER, SELFPAY | PROVIDERS: PCP Family Medicine; Visit Provider Nurse Practitioner Family | DX: Z98.890 Other specified postprocedural states (principal) | CPT/HCPCS: 99024 ==

== ENCOUNTER 2023-02-23 10:56 | Outpatient (CLI) | payer MEDICARE, OTHER, SELFPAY ==
--- NOTE | 2023-02-23 11:11 | MM_ITS ---
WS: [id number] BILATERAL SCREENING DIGITAL TOMOSYNTHESIS MAMMOGRAM WITH CAD HISTORY: SCREENING COMPARISON: 02/21/2022, 05/29/2020 Bilateral CC and MLO views with tomosynthesis and synthetic mammography submitted. Computer aided det ection analyzed. Breast composition: There are scattered areas of fibroglandular density. No suspicious masses, microc alcifications or architectural distortion. Benign bilateral breast arterial calcifications. MM/[place] [id number] IMPRESSION: BI-RADS: 2-Benign FOLLOW UP: 1 Year Follow-up
== END 2023-02-23 10:57 | disposition home or self-care (01) ==
PROVIDERS: PCP Family Medicine; Visit Provider Family Medicine
DX: Z12.31 Encounter for screening mammogram for malignant neoplasm of breast (principal)
CPT/HCPCS: 77063; 77067

== ENCOUNTER → 2023-03-08 08:57 | Outpatient (BNVA) | payer MEDICARE, OTHER, SELFPAY | PROVIDERS: PCP Family Medicine; Visit Provider Nurse Practitioner Family | DX: M17.11 Unilateral primary osteoarthritis, right knee (principal) | CPT/HCPCS: 20610; 73560; 73565; 99214 ==

== ENCOUNTER → 2023-03-28 11:05 | Outpatient (BNVA) | payer MEDICARE, OTHER, SELFPAY | PROVIDERS: PCP Family Medicine; Visit Provider Family Medicine | DX: Z51.81 Encounter for therapeutic drug level monitoring (principal); E03.9 Hypothyroidism, unspecified; I10 Essential (primary) hypertension; R23.2 Flushing | CPT/HCPCS: 85025 ==

== ENCOUNTER → 2023-04-06 11:40 | Outpatient (BNVA) | payer MEDICARE, OTHER, SELFPAY | PROVIDERS: PCP Family Medicine; Visit Provider Family Medicine | DX: G47.10 Hypersomnia, unspecified (principal); I10 Essential (primary) hypertension; R73.01 Impaired fasting glucose; R25.2 Cramp and spasm | CPT/HCPCS: 80053; 84439; 84443; 85025 ==

== ENCOUNTER → 2023-10-10 16:28 | Outpatient (BNVA) | payer MEDICARE, OTHER, SELFPAY | PROVIDERS: PCP Family Medicine; Visit Provider Family Medicine | DX: R20.8 Other disturbances of skin sensation (principal); R25.2 Cramp and spasm; E03.9 Hypothyroidism, unspecified | CPT/HCPCS: 85025 ==

== ENCOUNTER → 2023-10-11 08:20 | Outpatient (BNVA) | payer MEDICARE, OTHER, SELFPAY | PROVIDERS: PCP Family Medicine; Visit Provider Family Medicine | DX: Z51.81 Encounter for therapeutic drug level monitoring (principal); R20.8 Other disturbances of skin sensation; R25.2 Cramp and spasm; E03.9 Hypothyroidism, unspecified; I10 Essential (primary) hypertension | CPT/HCPCS: 80053; 83735; 84439; 84443; 85025; 85651; 86141 ==

== ENCOUNTER 2023-10-20 10:54 | Outpatient (CLI) | payer MEDICARE, OTHER, SELFPAY ==
--- NOTE | 2023-10-20 11:01 | XRR_ITS ---
PROCEDURE INFORMATION: Exam: XR Cervical Spine Exam date and time: 10/20/2023 11:18 AM Age: 72 years old Clinical indication: Radicular pain (radiculopathy); Cervical region; Additional info: Pain in skin, radicular symptoms TECHNIQUE: Imaging protocol: Radiologic exam of the cervical spine. Views: 2 or 3 views. COMPARISON: CR XR thoracic spine 3V* [id number] 10/20/2023 11:18 AM FINDINGS: Bones/joints: Slight retrolisthesis at C5-C6. Degenerative disc disease C5-C6 and C6-C7. Diffuse facet arthropathy. No fracture or bony destructive lesion. Soft tissues: Unremarkable. XR/XR cervical spine 3V* [id number] IMPRESSION: No acute findings.
--- NOTE | 2023-10-20 11:01 | XRR_ITS ---
PROCEDURE INFORMATION: Exam: XR Thoracic Spine Exam date and time: 10/20/2023 11:18 AM Age: 72 years old Clinical indication: Pain in thoracic spine; With radiculopathy; Bilateral; Additional info: Radicular symptoms TECHNIQUE: Imaging protocol: Radiologic exam of the thoracic spine. Views: 3 views. COMPARISON: CR XR cervical spine 3V* [id number] 10/20/2023 11:18 AM FINDINGS: Bones/joints: Mild apex rightward midthoracic curvature. Diffuse degenerative disc disease. No fracture or bony destructive lesion. Soft tissues: Unremarkable. XR/XR thoracic spine 3V* [id number] IMPRESSION: No acute findings.
--- NOTE | 2023-10-20 11:01 | XRR_ITS ---
PROCEDURE INFORMATION: Exam: XR Lumbosacral Spine Exam date and time: 10/20/2023 11:18 AM Age: 72 years old Clinical indication: Low back pain; Additional info: Low back pain, radicular symptoms TECHNIQUE: Imaging protocol: Radiologic exam of the lumbosacral spine. Views: 2 or 3 views. COMPARISON: CT abdomen pelvis w con* [id number] 07/30/2021 8:25 PM FINDINGS: Bones/joints: Slight retrolisthesis at L1-L2 and L2-L3. Diffuse degenerative disc disease and facet arthropathy. No fracture or bony destructive lesion. Soft tissues: Unremarkable. XR/XR lumbar spine 2-3V* [id number] IMPRESSION: No acute findings.
== END 2023-10-20 10:55 | disposition home or self-care (01) ==
LOC: RAD 10:57
PROVIDERS: PCP Family Medicine; Visit Provider Family Medicine
DX: R25.2 Cramp and spasm (principal); R20.8 Other disturbances of skin sensation; M54.9 Dorsalgia, unspecified; M54.10 Radiculopathy, site unspecified
CPT/HCPCS: 72040; 72072; 72100; 82085; 82550; 82552; 83615; 86038

== ENCOUNTER 2024-03-09 14:44 | Emergency (ER) | payer MEDICARE, OTHER, SELFPAY ==
[2024-03-09 14:53] VITALS: BP 201/78; PULSE 72; RESP 17; TEMP 36.8; O2SAT 95; BMI 31.6
--- NOTE | 2024-03-09 14:57 | ECG_ITS ---
[facility] Test Date: 2024-03-09 Pat Name: Kalyn Persaud Department: Room: Gender: Female Marine Electrician: : 1950 Requested By: Lane Oleary Order Number: [id number] Korey MD: Lamine Galloway M.D. Measurements Intervals Alpha Rate: 66 P: 36 KS: 185 QRS: -36 QRSD: 93 T: 39 QT: 388 QTc: 407 Interpretive Statements SINUS RHYTHM LEFT AXIS DEVIATION [QRS AXIS < -30] Compared to ECG 07/31/2021 00:51:03 No significant changes Electronically Signed On 03-10-2024 11:37:26 CDT by Lamine Galloway M.D. [id number]
--- NOTE | 2024-03-09 15:17 | XRR_ITS ---
PROCEDURE INFORMATION: Exam: XR Chest Exam date and time: 03/09/2024 4:16 PM Age: 73 years old Clinical indication: Other: HTN TECHNIQUE: Imaging protocol: Radiologic exam of the chest. Views: 1 view. COMPARISON: CR XR chest 1V portable [id number] 07/30/2021 7:04 PM FINDINGS: Lungs: Unremarkable. No consolidation. Pleural spaces: Unremarkable. No pleural effusion. No pneumothorax. Heart/Mediastinum: Unremarkable. No cardiomegaly. Bones/joints: Unremarkable. XR/XR chest 1V portable [id number] IMPRESSION: No acute findings.
--- NOTE | 2024-03-09 15:24 | W.ED.HA ---
Documented by User: LUCY Roy 03/09/24 16:59 HPI - Headache General: Chief Complaint: Headache Stated Complaint: elevated bp Time Seen by Provider: 03/09/24 15:08 Source: patient Mode of arrival: ambulatory Limitations: no limitations History of Present Illness: Patient is a 73-year-old female presenting to the emergency department complaining of elevated blood pressure onset today. Patient states she woke up with a headache and some blurry vision, took her blood pressure that read 200 systolic. She states normally her blood pressure runs 140 systolic, and she currently is on 40 of lisinopril and Toprol all 100 mg daily. She also has amlodipine that she takes as needed, stating that she took 2 these today and her blood pressures remain high. She also notes feeling generally unwell, and believes her blood pressure might be elevated due to both the headache and the [id number] osteoarthritis in her right knee. She states she has an appointment with orthopedics for this on Monday, but just got scared because her blood pressure was high. She is denying any chest pain, breathing difficulties, ripping/tearing back pain, unilateral numbness/weakness/tingling, or other concerning symptoms at this time. No recent changes to her medications. She does note a history of hypothyroidism. MD elicited complaint: headache (HTN) Pertinent past history: hypertension Onset (ago): hour(s) Associated symptoms: Deny chest pain, fever(s), lightheadedness, nausea, rash or vomiting Treatments prior to arrival: other (Blood pressure medications) Review of Systems General: Reports: 10 or more systems reviewed and unremarkable except in HPI and below Const: Denies: fever(s), chills or fatigue Eyes: Reports: blurry vision; Denies: change in vision ENMT: Denies: throat pain, ear or mastoid pain or nasal discharge Card: Reports: other (HTN); Denies: chest pain, palpitations, swelling of feet/ankles or lightheadedness Resp: Denies: dyspnea, productive cough or wheezing GI: Denies: abdominal pain, nausea, vomiting, diarrhea or constipation : Denies: flank pain, difficulty voiding, dysuria or urinary frequency Musc: Denies: neck pain, back pain or joint pain Skin/Breast: Denies: rash Neuro: Reports: headache(s); Denies: numbness in extremities or weakness in extremities PFSH ED PFSH: Medical History Hypothyroidism Hypertension No pertinent family history Surgical History No pertinent past surgical history Social History Smoking and tobacco/nicotine status: never used tobacco/nicotine Physical Exam Const: COMMON NORMALS: no acute distress, patient oriented x3 and no limitations GENERAL APPEARANCE: cooperative, comfortable and well developed ORIENTATION/CONSCIOUSNESS: Yes awake, Yes oriented to person, Yes oriented to place and Yes oriented to time HENMT: COMMON NORMALS: normocephalic, atraumatic and hearing grossly normal bilaterally HEAD & SCALP: normocephalic and atraumatic Eye: COMMON NORMALS: Equal, round and reactive pupils present, EOMs intact bilaterally and conjunctivae normal CONJUNCTIVA: Yes conjunctivae normal PUPIL: Yes Equal, round and reactive pupils present Neck/C-Spine: COMMON NORMALS: full ROM, supple and no JVD Resp: COMMON NORMALS: normal respiratory effort, No retractions, No use of accessory muscles and clear to auscultation bilaterally AUSCULTATION: clear to auscultation bilaterally Cardio: COMMON NORMALS: no JVD, regular rate, regular rhythm, No clicks present (Cardio), No murmurs present (Cardio) and No rub (Cardio) RATE: regular rate RHYTHM: regular rhythm GI: COMMON NORMALS: Normal to inspection, nondistended, normoactive bowel sounds present, Soft to palpation and non-tender AUSCULTATION: Yes normoactive bowel sounds PALPATION: Yes Soft to palpation RECTAL EXAM: deferred Extremity: COMMON NORMALS: normal to inspection, full ROM and capillary refill normal Neuro: COMMON NORMALS: patient oriented x3, CN's II-XII intact bilaterally, moves all extremities, no focal motor deficits and no sensory deficits noted SENSORIUM/ORIENTATION: Yes oriented to person, Yes oriented to place and Yes oriented to time Psych: COMMON NORMALS: mental status grossly normal and Normal thought process present THOUGHT PROCESS: Normal thought process present Course Vital Signs: Vital signs: Vital Signs Temperature 98.3 F 03/09/24 14:53 Pulse Rate 73 03/09/24 16:36 Respiratory Rate 16 03/09/24 16:36 Blood Pressure 151/63 03/09/24 16:36 Pulse Oximetry 97 03/09/24 16:36 Oxygen Delivery Me thod Room Air 03/09/24 16:36 MDM - Headache Medical Decision Making Patient presented for a headache and associated hypotension. Had taken 2 amlodipine at home along with her normally prescribed Toprol and lisinopril. She had stated that she has been in increased pain lately due to [id number] osteoarthritis of the right knee, of which she has appointment with orthopedic surgeon on Monday. Blood pressure on arrival was 201/78, patient stating her blood pressure normally runs 140 systolic. Treated her headache with IV Toradol, which improved her headache and along with IV labetalol brought her blood pressure down to 151/63, which patient states is normal for her. I would not mess with her blood pressure medications today and will have her follow-up with orthopedics and primary care in the upcoming week as planned. Her lab work unremarkable and no signs of acute kidney injury or abnormalities on EKG or chest x-ray. Her EKG did not demonstrate any acute ST segment changes or other arrhythmias. Patient will be discharged home with strict return precautions given. Lab Data I reviewed the patient's lab results. 03/09/24 16:04 03/09/24 16:04 Laboratory Results WBC 8.79 10^3/uL (3.29-11.43) 03/09/24 16:04 RBC 5.59 10^6/uL (3.85-5.65) 03/09/24 16:04 Hgb 17.00 g/dL (11.27-16.99) H 03/09/24 16:04 Hct 51.4 % (36-47) H 03/09/24 16:04 MCV 91.9 fl (85-98) 03/09/24 16:04 MCH 30.4 pg (27-33) 03/09/24 16:04 MCHC 33.1 g/dL (30-55) 03/09/24 16:04 RDW 12.7 % (12.1-15.1) 03/09/24 16:04 Plt Count 331 10^3/cmm (157-399) 03/09/24 16:04 MPV 10.4 fL (7.4-10.4) 03/09/24 16:04 Neut % (Auto) 66.4 % 03/09/24 16:04 Lymph % (Auto) 19.1 % 03/09/24 16:04 [place] % (Auto) 8.6 % 03/09/24 16:04 Eos % (Auto) 5.0 % 03/09/24 16:04 Baso % (Auto) 0.7 % 03/09/24 16:04 Neut # (Auto) 5.83 10^3/uL (1.8-7.7) 03/09/24 16:04 Lymph # (Auto) 1.7 10^3/uL (0.8-4.8) 03/09/24 16:04 [place] # (Auto) 0.8 10^3/uL (0.2-0.9) 03/09/24 16:04 Eos # (Auto) 0.4 10^3/uL (0.0-0.8) 03/09/24 16:04 Baso # (Auto) 0.1 10^3/uL (0.0-0.1) 03/09/24 16:04 Nucleated RBC % (auto) 0 % 03/09/24 16:04 Nucleated RBCs # 0.0 /100WBC 03/09/24 16:04 Sodium 143 mmol/L (136-145) 03/09/24 16:04 Potassium 4.6 mmol/L (3.5-5.1) 03/09/24 16:04 Chloride 104 mmol/L (98-107) 03/09/24 16:04 Carbon Dioxide 25 mmol/L (22-29) 03/09/24 16:04 Anion Gap 18.6 (5-19) 03/09/24 16:04 BUN 17 mg/dL (8-23) 03/09/24 16:04 Creatinine 1.1 mg/dL (0.5-0.9) H 03/09/24 16:04 GFR Calculation Not Reportable 03/09/24 16:04 Glucose 98 mg/dL (65-115) 03/09/24 16:04 Calculated Osmolality 298 mOsm/kg (285-295) H 03/09/24 16:04 Calcium 10.1 mg/dL (8.5-10.5) 03/09/24 16:04 Total Bilirubin 0.6 mg/dL (0.15-1.2) 03/09/24 16:04 AST 24 U/L (0-32) 03/09/24 16:04 ALT 18 U/L (0-33) 03/09/24 16:04 Alkaline Phosphatase 105 U/L (35-105) 03/09/24 16:04 Total Protein 8.2 g/dL (6.6-8.7) 03/09/24 16:04 Albumin 4.4 g/dL (3.5-5.2) 03/09/24 16:04 Globulin 3.8 g/dL (1.3-4.6) 03/09/24 16:04 TSH 0.35 uIU/mL (0.27-4.20) 03/09/24 16:04 Urine Color Yellow (Yellow) 03/09/24 16:10 Urine Appearance Clear (CLEAR) 03/09/24 16:10 Urine pH 7 (5-7) 03/09/24 16:10 Ur Specific [place] 1.010 (1.005-1.030) 03/09/24 16:10 Urine Protein Neg (Negative) 03/09/24 16:10 Urine Glucose (UA) Norm (Normal) 03/09/24 16:10 Urine Ketones Negative (Negative) 03/09/24 16:10 Urine Blood Neg (Negative) 03/09/24 16:10 Urine Nitrate Negative (Negative) 03/09/24 16:10 Urine Bilirubin Neg (Negative) 03/09/24 16:10 Urine Urobilinogen Norm mg/dL (Negative) 03/09/24 16:10 Ur Leukocyte Esterase Negative (Negative) 03/09/24 16:10 All radiology interpretation(s) finalized by discharge Discharge Plan Discharge Patient Disposition: Home Clinical Impression: Essential (primary) hypertension Condition: Stable Prescriptions: No Action hydrochlorothiazide 25 mg tablet 25 mg PO DAILY Qty: 30 6RF amlodipine 10 mg tablet 10 mg PO DAILY Qty: 90 3RF celecoxib [Celebrex] 100 mg capsule 100 mg PO BID Qty: 90 0RF simvastatin 20 mg tablet 20 mg PO DAILY Qty: 90 2RF metoprolol succinate 100 mg tablet extended release 24 hr 100 mg PO DAILY Qty: 90 2RF lisinopril 40 mg tablet 40 mg PO DAILY Qty: 90 2RF estradiol 0.5 mg tablet See Rx Instructions .ROUTE .COMPLEX Qty: 30 3RF Dose Instruction: TAKE 1 TABLET BY MOUTH EVERY DAY Rx Instructions: TAKE 1 TABLET BY MOUTH EVERY DAY levothyroxine 75 mcg tablet 75 mcg PO DAILY Qty: 90 3RF hydrocodone-acetaminophen 5-325 mg tablet 1 tab PO Q4H Qty: 15 0RF Discharge Orders: Discharge ED (Routine); Ordered 03/09/24 Ordered By: Christiano Melchor Referrals: Josafat Brock MD [Primary Care Provider] - Discharge Diet: Usual diet Discharge Activity: Increase activity as tolerated Patient Instructions: Hypertension (ED) Activity Restrictions/Additional Instructions: Plenty of fluids. Continue taking your blood pressure medications at home. Keep follow-up appointments as discussed. If you develop any new or concerning symptoms, return for reevaluation. Coding Level of Care Code ED [employer] Specialist for Chg Fwd Documented by User: Lane Serrano DO 03/09/24 17:25 HPI - Headache General: Chief Complaint: Headache Stated Complaint: elevated bp Time Seen by Provider: 03/09/24 15:08 [facility] ED PFSH: Medical History Hypothyroidism Hypertension No pertinent family history Surgical History No pertinent past surgical history Social History Smoking and tobacco/nicotine status: never used tobacco/nicotine Course Vital Signs: Vital signs: Vital Signs Temperature 98.3 F 03/09/24 14:53 Pulse Rate 73 03/09/24 16:36 Respiratory Rate 16 03/09/24 16:36 Blood Pressure 151/63 03/09/24 16:36 Pulse Oximetry 97 03/09/24 16:36 Oxygen Delivery Me thod Room Air 03/09/24 16:36 MDM - Headache Medical Decision Making Patient presented for a headache and associated hypotension. Had taken 2 amlodipine at home along with her normally prescribed Toprol and lisinopril. She had stated that she has been in increased pain lately due to [id number] osteoarthritis of the right knee, of which she has appointment with orthopedic surgeon on Monday. Blood pressure on arrival was 201/78, patient stating her blood pressure normally runs 140 systolic. Treated her headache with IV Toradol, which improved her headache and along with IV labetalol brought her blood pressure down to 151/63, which patient states is normal for her. I would not mess with her blood pressure medications today and will have her follow-up with orthopedics and primary care in the upcoming week as planned. Her lab work unremarkable and no signs of acute kidney injury or abnormalities on EKG or chest x-ray. Her EKG did not demonstrate any acute ST segment changes or other arrhythmias. Patient will be discharged home with strict return precautions given. Chart reviewed Lab Data 03/09/24 16:04 03/09/24 16:04 Laboratory Results WBC 8.79 10^3/uL (3.29-11.43) 03/09/24 16:04 RBC 5.59 10^6/uL (3.85-5.65) 03/09/24 16:04 Hgb 17.00 g/dL (11.27-16.99) H 03/09/24 16:04 Hct 51.4 % (36-47) H 03/09/24 16:04 MCV 91.9 fl (85-98) 03/09/24 16:04 MCH 30.4 pg (27-33) 03/09/24 16:04 MCHC 33.1 g/dL (30-55) 03/09/24 16:04 RDW 12.7 % (12.1-15.1) 03/09/24 16:04 Plt Count 331 10^3/cmm (157-399) 03/09/24 16:04 MPV 10.4 fL (7.4-10.4) 03/09/24 16:04 Neut % (Auto) 66.4 % 03/09/24 16:04 Lymph % (Auto) 19.1 % 03/09/24 16:04 [place] % (Auto) 8.6 % 03/09/24 16:04 Eos % (Auto) 5.0 % 03/09/24 16:04 Baso % (Auto) 0.7 % 03/09/24 16:04 Neut # (Auto) 5.83 10^3/uL (1.8-7.7) 03/09/24 16:04 Lymph # (Auto) 1.7 10^3/uL (0.8-4.8) 03/09/24 16:04 [place] # (Auto) 0.8 10^3/uL (0.2-0.9) 03/09/24 16:04 Eos # (Auto) 0.4 10^3/uL (0.0-0.8) 03/09/24 16:04 Baso # (Auto) 0.1 10^3/uL (0.0-0.1) 03/09/24 16:04 Nucleated RBC % (auto) 0 % 03/09/24 16:04 Nucleated RBCs # 0.0 /100WBC 03/09/24 16:04 Sodium 143 mmol/L (136-145) 03/09/24 16:04 Potassium 4.6 mmol/L (3.5-5.1) 03/09/24 16:04 Chloride 104 mmol/L (98-107) 03/09/24 16:04 Carbon Dioxide 25 mmol/L (22-29) 03/09/24 16:04 Anion Gap 18.6 (5-19) 03/09/24 16:04 BUN 17 mg/dL (8-23) 03/09/24 16:04 Creatinine 1.1 mg/dL (0.5-0.9) H 03/09/24 16:04 GFR Calculation Not Reportable 03/09/24 16:04 Glucose 98 mg/dL (65-115) 03/09/24 16:04 Calculated Osmolality 298 mOsm/kg (285-295) H 03/09/24 16:04 Calcium 10.1 mg/dL (8.5-10.5) 03/09/24 16:04 Total Bilirubin 0.6 mg/dL (0.15-1.2) 03/09/24 16:04 AST 24 U/L (0-32) 03/09/24 16:04 ALT 18 U/L (0-33) 03/09/24 16:04 Alkaline Phosphatase 105 U/L (35-105) 03/09/24 16:04 Total Protein 8.2 g/dL (6.6-8.7) 03/09/24 16:04 Albumin 4.4 g/dL (3.5-5.2) 03/09/24 16:04 Globulin 3.8 g/dL (1.3-4.6) 03/09/24 16:04 TSH 0.35 uIU/mL (0.27-4.20) 03/09/24 16:04 Urine Color Yellow (Yellow) 03/09/24 16:10 Urine Appearance Clear (CLEAR) 03/09/24 16:10 Urine pH 7 (5-7) 03/09/24 16:10 Ur Specific [place] 1.010 (1.005-1.030) 03/09/24 16:10 Urine Protein Neg (Negative) 03/09/24 16:10 Urine Glucose (UA) Norm (Normal) 03/09/24 16:10 Urine Ketones Negative (Negative) 03/09/24 16:10 Urine Blood Neg (Negative) 03/09/24 16:10 Urine Nitrate Negative (Negative) 03/09/24 16:10 Urine Bilirubin Neg (Negative) 03/09/24 16:10 Urine Urobilinogen Norm mg/dL (Negative) 03/09/24 16:10 Ur Leukocyte Esterase Negative (Negative) 03/09/24 16:10 Discharge Plan Discharge Patient Disposition: Home Clinical Impression: Essential (primary) hypertension Condition: Stable Prescriptions: No Action hydrochlorothiazide 25 mg tablet 25 mg PO DAILY Qty: 30 6RF amlodipine 10 mg tablet 10 mg PO DAILY Qty: 90 3RF celecoxib [Celebrex] 100 mg capsule 100 mg PO BID Qty: 90 0RF simvastatin 20 mg tablet 20 mg PO DAILY Qty: 90 2RF metoprolol succinate 100 mg tablet extended release 24 hr 100 mg PO DAILY Qty: 90 2RF lisinopril 40 mg tablet 40 mg PO DAILY Qty: 90 2RF estradiol 0.5 mg tablet See Rx Instructions .ROUTE .COMPLEX Qty: 30 3RF Dose Instruction: TAKE 1 TABLET BY MOUTH EVERY DAY Rx Instructions: TAKE 1 TABLET BY MOUTH EVERY DAY levothyroxine 75 mcg tablet 75 mcg PO DAILY Qty: 90 3RF hydrocodone-acetaminophen 5-325 mg tablet 1 tab PO Q4H Qty: 15 0RF Discharge Orders: Discharge ED (Routine); Ordered 03/09/24 Ordered By: Christiano Melchor Referrals: Josafat Brock MD [Primary Care Provider] - Discharge Diet: Usual diet Discharge Activity: Increase activity as tolerated Patient Instructions: Hypertension (ED) Activity Restrictions/Additional Instructions: Plenty of fluids. Continue taking your blood pressure medications at home. Keep follow-up appointments as discussed. If you develop any new or concerning symptoms, return for reevaluation. Coding Level of Care Code ED [employer] Specialist for Jenniffer Brown
[2024-03-09 16:09] LABS: Basophils # 0.1 10^3/uL (0.0-0.1); Basophils % 0.7 %; Eosinophils # 0.4 10^3/uL (0.0-0.8); Hematocrit 51.4 % (36-47); Lymphocytes # 1.7 10^3/uL (0.8-4.8); Lymphocytes % 19.1 %; Mean Corpuscular HGB Conc 33.1 g/dL (30-55); Mean Corpuscular Hemoglobin 30.4 pg (27-33); Mean Corpuscular Volume 91.9 fl (85-98); Mean Platelet Volume 10.4 fL (7.4-10.4); Monocytes # 0.8 10^3/uL (0.2-0.9); Monocytes % 8.6 %; Neutrophils # 5.83 10^3/uL (1.8-7.7); Neutrophils % 66.4 %; Nucleated Red Blood Cells % 0 %; Platelet Count 331 10^3/cmm (157-399); Red Blood Count 5.59 10^6/uL (3.85-5.65); Red Cell Distribution Width 12.7 % (12.1-15.1); White Blood Count 8.79 10^3/uL (3.29-11.43)
[2024-03-09 16:20] LABS: Add Urine Microscopic? NO; Charge for UA Resulting for Rev
[2024-03-09] MEDS: labetalol 5 mg/mL SDV 20mL 20 MG IVP (16:20)
[2024-03-09] MEDS: ketorolac 60 mg/2 mL INJ 30 MG IVP (16:20)
[2024-03-09 16:36] VITALS: BP 151/63; PULSE 73; RESP 16; O2SAT 97
[2024-03-09 16:37] LABS: Alanine Aminotransferase 18 U/L (0-33); Albumin Level 4.4 g/dL (3.5-5.2); Alkaline Phosphatase 105 U/L (35-105); Anion Gap 18.6 (5-19); Aspartate Amino Transferase 24 U/L (0-32); Blood Urea Nitrogen 17 mg/dL (8-23); Calcium 10.1 mg/dL (8.5-10.5); Carbon Dioxide 25 mmol/L (22-29); Chloride 104 mmol/L (98-107); Globulin 3.8 g/dL (1.3-4.6); Glucose 98 mg/dL (65-115); Osmolality Calculated 298 mOsm/kg (285-295); Potassium 4.6 mmol/L (3.5-5.1); Sodium 143 mmol/L (136-145); Thyroid Stimulating Hormone 0.35 uIU/mL (0.27-4.20); Total Bilirubin 0.6 mg/dL (0.15-1.2); Total Protein 8.2 g/dL (6.6-8.7)
[2024-03-09 16:44] LABS: Bilirubin Urine Neg (Negative); Blood Urine Neg (Negative); Glucose Urine UA Norm (Normal); Ketones Urine Negative (Negative); Leukocyte Esterase Urine Negative (Negative); Nitrate Urine Negative (Negative); Protein Urine Neg (Negative); Urine Appearance Clear (CLEAR); Urine Color Yellow (Yellow); Urobilinogen Urine Norm (Negative); pH Urine 7 (5-7)
[2024-03-09 16:45] LABS: Creatinine Clr Calc Pharmacy 44.5887
[2024-03-09 18:22] VITALS: BP 149/65; PULSE 71; RESP 16; TEMP 36.8; O2SAT 98
== END 2024-03-09 17:16 | disposition home or self-care (01) ==
PROVIDERS: Emergency Provider Physician Assistant; PCP Family Medicine
DX: I10 Essential (primary) hypertension (principal)
CPT/HCPCS: 71045; 80053; 81003; 84443; 85025; 93005; 96374; 96375; 99285; J1885; J3490

== ENCOUNTER 2024-06-15 09:55 | Emergency (ER) | payer MEDICARE, OTHER, SELFPAY ==
[2024-06-15 10:07] VITALS: BP 130/77; PULSE 78; RESP 18; TEMP 36.8; O2SAT 95; BMI 32.9
--- NOTE | 2024-06-15 10:21 | W.ED.WEAKNES ---
HPI - Weakness General: Chief complaint: Weakness Stated complaint: Dehydration Time Seen by Provider: 06/15/24 10:09 History of Present Illness: 73-year-old woman with a history of hypertension hypothyroidism and obesity who presents to the emergency room with weakness. She said she had nausea vomiting and diarrhea earlier in the week which has since resolved but she is continue to have no appetite and severe weakness. She says at 1 point she had tremors that were more than just what she would have with a fever she thinks. This has resolved. No focal motor deficits. No altered mental status. No slurred speech. No abdominal pain. No chest pain. No shortness of breath. She was seen in clinic a couple days ago. Vitals are normal on presentation. No current fevers. Review of Systems Narrative: Constitutional symptoms: Negative except as documented in HPI. Skin symptoms: Negative except as documented in HPI. Eye symptoms: Negative except as documented in HPI. ENMT symptoms: Negative except as documented in HPI. Respiratory symptoms: Negative except as documented in HPI. Cardiovascular symptoms: Negative except as documented in HPI. Gastrointestinal symptoms: Negative except as documented in HPI. Genitourinary symptoms: Negative except as documented in HPI. Musculoskeletal symptoms: Negative except as documented in HPI. Neurologic symptoms: Negative except as documented in HPI. Psychiatric symptoms: Negative except as documented in HPI. Endocrine symptoms: Negative except as documented in HPI. [facility] ED PFSH: Medical History Hypothyroidism Hypertension No pertinent family history Surgical History No pertinent past surgical history Social History Smoking and tobacco/nicotine status: never used tobacco/nicotine Physical Exam Narrative: EXAM NARRATIVE: General: Alert, no acute distress. Skin: Warm, dry. Head: Normocephalic, atraumatic. Neck: Supple, trachea midline. Eye: Extraocular movements are intact. Ears, nose, mouth and throat: mucosa moist. Cardiovascular: Regular, Normal peripheral perfusion. Respiratory: Lungs are clear to auscultation, respirations are non-labored, breath sounds are equal, Symmetrical chest wall expansion. Gastrointestinal: Soft, Nontender, Non distended Musculoskeletal: Normal ROM, no deformity. Neurological: Alert and oriented, No focal neurological deficit observed. Psychiatric: Cooperative, appropriate mood & affect. Course Vital Signs: Vital signs: Vital Signs Temperature 98.3 F 06/15/24 10:07 Pulse Rate 71 06/15/24 12:13 Respiratory Rate 18 06/15/24 10:07 Blood Pressure 159/71 06/15/24 12:13 Pulse Oximetry 98 06/15/24 12:13 Oxygen Delivery Me thod Room Air 06/15/24 10:07 MDM - Weakness Medical Decision Making Medical decision making: Differential diagnosis for patient presenting with generalized weakness including but not limited to and based on the above HPI, review of systems and physical exam: Sepsis. Dehydration. Renal failure. Electrolyte abnormalities. Anemia. Congestive heart failure. Hypotension. Coronary syndrome. Hepatitis. Cirrhosis. Infections such as pneumonia, urinary tract infection, [place] illness, Cellulitis, Viral infections including influenza and Covid-19. Workup: labwork and lab/exam driven imaging ordered to evaluate, rule in and rule out above pathologies. Lab Review: Laboratory results were reviewed and interpreted by myself the emergency room physician. No leukocytosis. No anemia. Patient does have some mild hyponatremia with sodium 128. BUN and creatinine are not elevated. She does appear dehydrated on exam so 2 L of fluid have been given. Urinalysis is clear. Respiratory panel was negative. I reviewed the patient's medical record. Reexamination: Patient remained stable. No increased work of breathing. No altered mental status. No focal motor deficits. Assessment and plan: Hyponatremia Dehydration ?2 L normal saline bolus and IV Zofran in the emergency room - Discharged home - Discussed plan with patient. Answered any questions. - Evaluation and treatment of this problem were appropriate in the emergency setting. Lab Data 06/15/24 10:40 06/15/24 10:40 Laboratory Results WBC 8.05 10^3/uL (3.29-11.43) 06/15/24 10:40 RBC 4.76 10^6/uL (3.85-5.65) 06/15/24 10:40 Hgb 14.50 g/dL (11.27-16.99) 06/15/24 10:40 Hct 43.0 % (36-47) 06/15/24 10:40 MCV 90.3 fl (85-98) 06/15/24 10:40 MCH 30.5 pg (27-33) 06/15/24 10:40 MCHC 33.7 g/dL (30-55) 06/15/24 10:40 RDW 13.2 % (12.1-15.1) 06/15/24 10:40 Plt Count 308 10^3/cmm (157-399) 06/15/24 10:40 MPV 10.3 fL (7.4-10.4) 06/15/24 10:40 Neut % (Auto) 61.9 % 06/15/24 10:40 Lymph % (Auto) 17.5 % 06/15/24 10:40 [place] % (Auto) 15.0 % 06/15/24 10:40 Eos % (Auto) 4.1 % 06/15/24 10:40 Baso % (Auto) 1.0 % 06/15/24 10:40 Neut # (Auto) 4.98 10^3/uL (1.8-7.7) 06/15/24 10:40 Lymph # (Auto) 1.4 10^3/uL (0.8-4.8) 06/15/24 10:40 [place] # (Auto) 1.2 10^3/uL (0.2-0.9) H 06/15/24 10:40 Eos # (Auto) 0.3 10^3/uL (0.0-0.8) 06/15/24 10:40 Baso # (Auto) 0.1 10^3/uL (0.0-0.1) 06/15/24 10:40 Nucleated RBC % (auto) 0 % 06/15/24 10:40 Nucleated RBCs # 0.0 /100WBC 06/15/24 10:40 Sodium 128 mmol/L (136-145) L 06/15/24 10:40 Potassium 4.1 mmol/L (3.5-5.1) 06/15/24 10:40 Chloride 94 mmol/L (98-107) L 06/15/24 10:40 Carbon Dioxide 22 mmol/L (22-29) 06/15/24 10:40 Anion Gap 16.1 (5-19) 06/15/24 10:40 BUN 10 mg/dL (8-23) 06/15/24 10:40 Creatinine 1.1 mg/dL (0.5-0.9) H 06/15/24 10:40 GFR Calculation Not Reportable 06/15/24 10:40 Glucose 103 mg/dL (65-115) 06/15/24 10:40 Calculated Osmolality 265 mOsm/kg (285-295) L 06/15/24 10:40 Lactic Acid 1.7 mmol/L (0.5-2.2) 06/15/24 10:40 Calcium 8.6 mg/dL (8.5-10.5) 06/15/24 10:40 Total Bilirubin 0.8 mg/dL (0.15-1.2) 06/15/24 10:40 AST 19 U/L (0-32) 06/15/24 10:40 ALT 15 U/L (0-33) 06/15/24 10:40 Alkaline Phosphatase 84 U/L (35-105) 06/15/24 10:40 C-Reactive Protein 3.2 mg/L (0.0-4.9) 06/15/24 10:40 Total Protein 6.7 g/dL (6.6-8.7) 06/15/24 10:40 Albumin 3.8 g/dL (3.5-5.2) 06/15/24 10:40 Globulin 2.9 g/dL (1.3-4.6) 06/15/24 10:40 Lipase 35 U/L (13-60) 06/15/24 10:40 Urine Color Yellow (Yellow) 06/15/24 11:15 Urine Appearance Clear (CLEAR) 06/15/24 11:15 Urine pH 7 (5-7) 06/15/24 11:15 Ur Specific [place] 1.003 (1.005-1.030) L 06/15/24 11:15 Urine Protein Neg (Negative) 06/15/24 11:15 Urine Glucose (UA) Norm (Normal) 06/15/24 11:15 Urine Ketones Negative (Negative) 06/15/24 11:15 Urine Blood Neg (Negative) 06/15/24 11:15 Urine Nitrate Negative (Negative) 06/15/24 11:15 Urine Bilirubin Neg (Negative) 06/15/24 11:15 Urine Urobilinogen 0.2 mg/dL (Negative) 06/15/24 11:15 Ur Leukocyte Esterase Negative (Negative) 06/15/24 11:15 Urine RBC 0-2 /hpf (0-2) 06/15/24 11:15 Urine WBC 0-5 /hpf (0-5) 06/15/24 11:15 Ur Squamous Epith Cells 0-5 /hpf (0-5) 06/15/24 11:15 Amorphous Sediment Not Reportable 06/15/24 11:15 Urine Bacteria None seen /hpf (NONE) 06/15/24 11:15 Hyaline Casts 0-4 /lpf H 06/15/24 11:15 Coronavirus (PCR) Negative (Negative) 06/15/24 12:13 Influenza A (PCR) Negative (Negative) 06/15/24 12:13 Influenza Type B (PCR) Negative (Negative) 06/15/24 12:13 RSV (PCR) Negative (Negative) 06/15/24 12:13 No radiology studies performed this visit Discharge Plan Discharge Patient Disposition: Home Clinical Impression: Dehydration, Acute hyponatremia Condition: Stable Prescriptions: New ondansetron 8 mg tablet,disintegrating 8 mg PO Q6H Qty: 14 0RF Rx Instructions: Take 1/2-1 tab every 6 hours as needed for nausea and vomiting No Action hydrochlorothiazide 25 mg tablet 25 mg PO DAILY Qty: 30 6RF celecoxib [Celebrex] 100 mg capsule 100 mg PO BID Qty: 90 0RF levothyroxine 75 mcg tablet 75 mcg PO DAILY Qty: 90 3RF amlodipine 10 mg tablet 10 mg PO DAILY Qty: 30 0RF estradiol 0.5 mg tablet See Rx Instructions .ROUTE .COMPLEX Qty: 30 0RF Dose Instruction: TAKE 1 TABLET BY MOUTH EVERY DAY Rx Instructions: TAKE 1 TABLET BY MOUTH EVERY DAY metoprolol succinate 100 mg tablet extended release 24 hr 100 mg PO DAILY Qty: 90 2RF simvastatin 20 mg tablet 20 mg PO DAILY Qty: 90 2RF lisinopril 40 mg tablet 40 mg PO DAILY Qty: 90 2RF hydrocodone-acetaminophen 5-325 mg tablet 1 tab PO Q4H Qty: 15 0RF Discharge Orders: Discharge ED (Routine); Ordered 06/15/24 Ordered By: Tanja Kee Referrals: Dylan Badillo MD [Primary Care Provider] - Discharge Diet: Advance as tolerated Discharge Activity: Increase activity as tolerated Patient Instructions: Hyponatremia (ED) Activity Restrictions/Additional Instructions: Thank you for choosing [facility] [place] for your healthcare needs today. Please realize this is an emergency room and that we are providing you with a medical screening exam and this may not be complete and all inclusive of all the testing and or work up that you may need to determine your ailment or severity of your illness. You have been screened and evaluated and felt safe for discharge. Health conditions do change or evolve sometimes and as such it is important that you follow up with your Primary Doctor to be re checked, 3-5 days is a general good time frame for follow up. 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[employer] Related Data Previous Rx's Medication Instructions Recorded hydrochlorothiazide 25 mg tablet 25 mg PO DAILY #30 tabs 06/21/22 hydrocodone 5 mg-acetaminophen 325 1 tab PO Q4H #15 tabs 11/03/22 mg tablet celecoxib 100 mg capsule (Celebrex) 100 mg PO BID #90 caps 06/05/23 levothyroxine 75 mcg tablet 75 mcg PO DAILY #90 tabs 02/01/24 amlodipine 10 mg tablet 10 mg PO DAILY #30 tabs 03/12/24 estradiol 0.5 mg tablet See Rx Instructions .Route 03/12/24 .COMPLEX #30 tabs metoprolol succinate 100 mg 100 mg PO DAILY #90 tabs 06/11/24 tablet,extended release 24 hr simvastatin 20 mg tablet 20 mg PO DAILY #90 tabs 06/11/24 lisinopril 40 mg tablet 40 mg PO DAILY #90 tabs 06/14/24 ondansetron 8 mg disintegrating 8 mg PO Q6H #14 tabs 06/15/24 tablet Allergies Allergy/AdvReac Type Severity Reaction Status Date / Time prednisone Allergy Mild rash Verified 03/09/24 14:57
[2024-06-15] MEDS: sodium chloride 0.9% 1,000 ML 999 ML IV ×2 (10:45→12:10)
[2024-06-15 10:56] LABS: Basophils # 0.1 10^3/uL (0.0-0.1); Eosinophils # 0.3 10^3/uL (0.0-0.8); Eosinophils % 4.1 %; Lymphocytes # 1.4 10^3/uL (0.8-4.8); Lymphocytes % 17.5 %; Mean Corpuscular HGB Conc 33.7 g/dL (30-55); Mean Corpuscular Hemoglobin 30.5 pg (27-33); Mean Corpuscular Volume 90.3 fl (85-98); Mean Platelet Volume 10.3 fL (7.4-10.4); Monocytes # 1.2 10^3/uL (0.2-0.9); Neutrophils # 4.98 10^3/uL (1.8-7.7); Neutrophils % 61.9 %; Nucleated Red Blood Cells % 0 %; Platelet Count 308 10^3/cmm (157-399); Red Blood Count 4.76 10^6/uL (3.85-5.65); Red Cell Distribution Width 13.2 % (12.1-15.1); White Blood Count 8.05 10^3/uL (3.29-11.43)
[2024-06-15 11:10] LABS: Lactic Sepsis W/Reflex 1.7 mmol/L (0.5-2.2)
[2024-06-15 11:11] LABS: Alanine Aminotransferase 15 U/L (0-33); Albumin Level 3.8 g/dL (3.5-5.2); Alkaline Phosphatase 84 U/L (35-105); Anion Gap 16.1 (5-19); Aspartate Amino Transferase 19 U/L (0-32); Blood Urea Nitrogen 10 mg/dL (8-23); C Reactive Protein 3.2 mg/L (0.0-4.9); Calcium 8.6 mg/dL (8.5-10.5); Carbon Dioxide 22 mmol/L (22-29); Chloride 94 mmol/L (98-107); Globulin 2.9 g/dL (1.3-4.6); Glucose 103 mg/dL (65-115); Lipase 35 U/L (13-60); Osmolality Calculated 265 mOsm/kg (285-295); Potassium 4.1 mmol/L (3.5-5.1); Sodium 128 mmol/L (136-145); Total Bilirubin 0.8 mg/dL (0.15-1.2); Total Protein 6.7 g/dL (6.6-8.7)
[2024-06-15 11:14] LABS: Creatinine Clr Calc Pharmacy 43.7527
[2024-06-15 11:30] LABS: Bacteria Urine None Seen /hpf; Hyaline Casts Urine 0-4 /lpf; RBC Urine 0-2 /hpf (0-2); Squamous Epithelial Cell Urine 0-5 /hpf (0-5); WBC Urine 0-5 /hpf (0-5)
[2024-06-15 11:35] LABS: Bilirubin Urine Neg (Negative); Blood Urine Neg (Negative); Glucose Urine UA Norm (Normal); Ketones Urine Negative (Negative); Nitrate Urine Negative (Negative); Protein Urine Neg (Negative); Specific Gravity, Urine 1.003 (1.005-1.030); Urine Appearance Clear (CLEAR); Urine Color Yellow (Yellow); pH Urine 7 (5-7)
[2024-06-15 11:36] LABS: Leukocyte Esterase Urine Negative (Negative); Urobilinogen Urine 0.2 mg/dL (Negative)
[2024-06-15] MEDS: ondansetron 2 mg/ML SDV 2 mL 4 MG IVP (12:11)
[2024-06-15 12:13] VITALS: BP 159/71; PULSE 71; O2SAT 98
[2024-06-15 13:00] LABS: Covid PCR NEGATIVE (Negative); Influenza A NEGATIVE (Negative); Influenza B NEGATIVE (Negative); Respiratory Syncytial Virus Ce NEGATIVE (Negative)
[2024-06-15 13:36] VITALS: BP 172/79; PULSE 66; O2SAT 100
== END 2024-06-15 13:39 | disposition home or self-care (01) ==
PROVIDERS: Emergency Provider Emergency Medicine; PCP Family Medicine
DX: E86.0 Dehydration (principal); E87.1 Hypo-osmolality and hyponatremia; I10 Essential (primary) hypertension
CPT/HCPCS: 0241U; 80053; 81001; 83605; 83690; 85025; 86140; 96361; 96374; 99284; J2405; J7030